=== PATIENT | male | born 1950 | race Caucasian/White ===

== ENCOUNTER → 2019-03-07 | Outpatient (CLI) | payer MEDICARE, OTHER ==
--- NOTE | 2019-03-07 12:19 | PCVCIMAG ---
APPROVED REPORT Laterality: Bilateral Indications Bruit Doppler Spectral Velocity Analysis PSV / EDVPSV / EDV ECA (R) 58 / 9 cm/sECA (L) 63 / 9 cm/s dICA (R) 70 / 28 cm/sdICA (L) 46 / 20 cm/s Jessica (R) 74 / 28 cm/smICA (L) 64 / 28 cm/s pICA (R) 59 / 22 cm/spICA (L) 61 / 24 cm/s Bulb (R) 54 / 17 cm/sBulb (L) 61 / 17 cm/s dCCA (R) 53 / 15 cm/sdCCA (L) 71 / 22 cm/s mCCA (R) 49 / 14 cm/smCCA (L) 79 / 21 cm/s Vert (R) 43 / 15 cm/sVert (L) 41 / 6 cm/s ICA/CCA 1.40 ICA/CCA 0.90 Findings The right carotid bulb has mild plaque. The right proximal internal carotid artery shows no significant stenosis. The right common carotid artery shows no significant stenosis. The right external carotid artery shows no significant stenosis. The left carotid bulb has minimal plaque. The left proximal internal carotid artery shows no significant stenosis. The left common carotid artery shows no significant stenosis. The left external carotid artery shows no significant stenosis. Conclusion 1. Mild bilateral plaquing without significant stenosis. 2. Antegrade vertebral flow.
--- NOTE | 2019-03-11 16:48 | PCVCIMAG ---
APPROVED REPORT Study performed: 03/07/2019 10:44:39 Exam: Stress Echocardiogram Indication: CAD ,elevated or ca+ Patient Location: Echo lab Stress Nurse: Sarah Remy RN Room #: 2 Status: routine Ht: 5 ft 9 in HR: 58 bpm BP: 124/84 mmHg Rhythm: NSR Medical History Medical History: Hyperlipidemia, CAD non obstructive Cardiac Risk Factors: Hyperlipidemia Previous Cardiac Procedures: none Pretest Chest Pain Characteristics: No chest pain Exercise History: Physically active Procedure The patient underwent an Exercise Stress Test using the Jr Protocol. Blood pressure, heart rate, and EKG were monitored. An Echocardiogram was performed by certified ophthalmic technician in four stages in quad fashion. At peak stress, four selected images were obtained and placed side by side with resting images for comparison. Stress Test Details Stress Test: Exercise stress testing was performed using a Jr protocol. HR Resting HR: 58 bpmMax Heart Rate (APMHR): 154 bpm Max HR Achieved: 155 bpmTarget HR (85% APMHR): 130 bpm % of APMHR: 100 Recovery HR: 80 bpm HR response to stress: Normal HR response to stress BP Resting BP: 124/84 mmHg Max BP: 150/66 mmHg Recovery BP: 112/64 mmHg BP response to stress: Normal blood pressure response to stress. ECG Resting ECG: Sinus Rhythm Stress ECG: Sinus Rhythm, nonspecific ST-T abnormalities ST Change: Non-ischemic Maximum ST Deviation: -1.85 mm Arrhythmia: Occ PVCs,PACs Recovery ECG: Sinus Rhythm, NSSTT changes Recovery ST Change: Non-ischemic Recovery ST Deviation: -0.30 mm Recovery Arrhythmia: occ pac Clinical Reason for Termination: Maximal effort Exercise duration: 9 min 18 sec Highest Stage Achieved: Stage 4: 4.2 mph at 16% grade. Exercise capacity: 11 METs Overall Exercise Capacity for Age: Normal Scale: Active Angina Score: None No complications. Stress ECG Conclusion Holt Treadmill Score is 18.3 which is Low risk. Pre-Stress Echo The resting Echocardiogram showed normal left ventricular contractility with an estimated Ejection Fraction of about 55-60%. Normal wall motion in all segments on baseline images. Post-Stress Echo The stress Echocardiogram showed normal left ventricular contractility with an estimated Ejection Fraction of about 65-70%. Normal augmentation of wall motion in all segments on post stress images. Clinical No clinical or ECG evidence for ischemia. Conclusion Clinical Response: Non-ischemic Exercise Capacity: Average Stress ECG Response: Non-ischemic Stress Echo Images: Non-ischemic No clinical, EKG or echocardiographic evidence for ischemia. No echocardiographic evidence for exercise induced ischemia. Normal stress echocardiogram with maximal exercise stress. Normal color doppler. No stenosis or regurgitation seen in the mitral,aortic,tricuspid or pulmonic valves. <Conclusion> No clinical, EKG or echocardiographic evidence for ischemia. No echocardiographic evidence for exercise induced ischemia. Normal stress echocardiogram with maximal exercise stress. Normal color doppler. No stenosis or regurgitation seen in the mitral,aortic,tricuspid or pulmonic valves.
== END | disposition home or self-care (01) ==
LOC: PCVCIMAG 10:14
PROVIDERS: ATTEND Internal Medicine Cardiovascular Disease
DX: I65.23 Occlusion and stenosis of bilateral carotid arteries (principal); E11.9 Type 2 diabetes mellitus without complications; I10 Essential (primary) hypertension; Z90.49 Acquired absence of other specified parts of digestive tract; Z82.49 Family history of ischemic heart disease and other diseases of the circulatory system; Z88.1 Allergy status to other antibiotic agents; Z88.0 Allergy status to penicillin; Z88.8 Allergy status to other drugs, medicaments and biological substances
CPT/HCPCS: 93325; 93351; 93880